=== PATIENT | male | born 1975 | race Caucasian/White ===

== ENCOUNTER 2019-01-31 08:14 | Day surgery (SDC) | payer BC ==
[2019-01-31] VITALS (10 sets, daily range): BP systolic 108–138; BP diastolic 67–87
[~2019-01-31] VITALS: Ht 172.7 cm; Wt 95.4 kg
[2019-01-31] MEDS ORDERED: normal saline 1000ml 1,000 ML IV PRN (09:15)
[2019-01-31 09:30] LABS: BASOPHILS % (AUTO) 0.9 % (0-1); EOSINOPHILS # (AUTO) 0.1 X10'3 (0-0.9); EOSINOPHILS % (AUTO) 2.7 % (0-6); HEMOGLOBIN 15.8 g/dl (14.0-17.9); LYMPHOCYTES # (AUTO) 0.6 X10'3 (1.1-4.8); LYMPHOCYTES % (AUTO) 17.4 % (21-51); MEAN CORPUSCULAR HEMOGLOBIN 31.1 PG (27.0-31.0); MEAN CORPUSCULAR HGB CONC 34.3 g/dL (33.0-36.5); MEAN CORPUSCULAR VOLUME 90.8 FL (78-98); MEAN PLATELET VOLUME 7.3 FL (7.4-10.4); MONOCYTES # (AUTO) 0.3 X10'3 (0-0.9); MONOCYTES % (AUTO) 9.2 % (2-12); NEUTROPHILS # (AUTO) 2.5 X10'3 (1.8-7.7); NEUTROPHILS % (AUTO) 69.8 % (42-75); PLATELET COUNT 105 X10'3 (140-440); RED BLOOD COUNT 5.07 X10'6 (4.70-6.10); RED CELL DISTRIBUTION WIDTH 14.1 % (11.5-14.5); WHITE BLOOD COUNT 3.6 X10'3 (4.5-11.0)
[2019-01-31] MEDS ORDERED: LORA10TA7 PO (09:41)
[2019-01-31] MEDS ORDERED: NITR1OIN TOP (09:41)
[2019-01-31] MEDS ORDERED: ASPI81TA44 PO (09:41)
[2019-01-31] MEDS ORDERED: NAPR250T4 PO (09:41)
[2019-01-31] MEDS ORDERED: NIFE60TA79 PO (09:41)
[2019-01-31 09:45] LABS: ALBUMIN 3.9 G/DL (3.4-5.0); ANION GAP 8 (8-16); BLOOD UREA NITROGEN 17 MG/DL (7-18); CALCIUM 8.9 MG/DL (8.5-10.1); CHLORIDE 105 MMOL/L (99-107); CREATININE 0.81 MG/DL (0.60-1.10); GLUCOSE 100 MG/DL (70-104); POTASSIUM 4.1 MMOL/L (3.5-5.1); SODIUM 136 MMOL/L (135-145); TOTAL CARBON DIOXIDE 23.1 MMOL/L (24-32); eGFR > 90 ML/MIN
[2019-01-31 09:55] LABS: PARTIAL THROMBOPLASTIN TIME 31 SECONDS (22-32)
[2019-01-31] MEDS ORDERED: midazolam 2 mg/2 ml injection IV PRN (10:00)
[2019-01-31] MEDS ORDERED: LIDOcaine 1%/PF 5ML 10 MG/ML VIAL SQ ONE (10:00)
[2019-01-31] MEDS ORDERED: fentaNYL/PF 50MCG/1 ML 2ML syringe IV PRN (10:00)
[2019-01-31] MEDS ORDERED: heparin 1,000 UNITS/NS 500ml 500 ML ICATH ONE (10:00)
[2019-01-31] MEDS ORDERED: fentaNYL/PF 50MCG/1 ML 2ML syringe ONE ×3 (10:20→11:15)
[2019-01-31] MEDS ORDERED: midazolam 2 mg/2 ml injection ONE ×3 (10:20→11:14)
[2019-01-31] MEDS ORDERED: heparin 1,000 UNITS/NS 500ml 500 ML ONE (10:20)
[2019-01-31] MEDS ORDERED: LIDOcaine 1%/PF 5ML 10 MG/ML VIAL ONE ×2 (10:20→11:30)
[2019-01-31] MEDS ORDERED: iohexol 300mg/ml 100ml inj. ONE (10:20)
[2019-01-31] MEDS ORDERED: heparin 1,000unit/ml 10ml vial 10 ML ONE (10:53)
== END 2019-01-31 14:45 | disposition home or self-care (01) ==
LOC: SSTAY O 08:14
PROVIDERS: ATTEND Radiology Vascular & Interventional Radiology
DX: D68.61 Antiphospholipid syndrome (principal); I77.89 Other specified disorders of arteries and arterioles; D68.62 Lupus anticoagulant syndrome; Z87.891 Personal history of nicotine dependence; Z79.899 Other long term (current) drug therapy; M79.645 Pain in left finger(s); M79.644 Pain in right finger(s); D89.89 Other specified disorders involving the immune mechanism, not elsewhere classified
CPT/HCPCS: 36225; 36415; 80048; 85025; 85610; 85730; 99152; 99153; C1760; C1769; C1887; C1894; G0269; J1644; J2250; J3010; J7030; Q9967; 36222; 75716; 76937